=== PATIENT | male | born 1950 | race Caucasian/White ===

== ENCOUNTER 2022-06-02 16:26 | Inpatient (IN) | payer MEDICARE, SELFPAY ==
[2022-06-02 18:09] LABS: #Basophils 0.1 thou/uL (0.0-0.2); #Eosinphils 1.8 thou/uL (0.0-0.7); #Lymphocytes 2.9 thou/uL (1.20-3.40); #Monocytes 1.4 thou/uL (0.11-0.59); %Basophils 0.7 % (0.0-1.0); %Eosinophils 12.6 % (0.0-10.0); %Lymphocytes 20.6 % (21.0-51.0); %Monocytes 10.1 % (0.0-10.0); %Neutrophils 55.9 % (42.0-75.0); Hemoglobin 14.7 g/dL (14.0-18.0); Mean Corpuscular HGB CONC 31.8 g/dL (32.0-36.0); Mean Corpuscular Hemoglobin 29.3 pg (27.0-31.0); Mean Corpuscular Volume 91.9 fl (78.0-98.0); Mean Platelet Volume 7.4 fL (7.4-10.4); Platelet Count 481 10x3/uL (130-400); RBC Distribution Width 13.7 % (11.5-14.5); Red Blood Cell (RBC) Count 5.03 mill/uL (4.70-6.10); White Blood Cell (WBC) Count 14.2 10x3/uL (4.8-10.8)
[2022-06-02 18:43] LABS: ALT (SGPT) 36 U/L (8-55); AST (SGOT) 29 U/L (5-34); Albumin 3.7 g/dL (3.4-4.8); Alkaline Phosphatase 94 U/L (40-110); Anion Gap 14 mmol/L (10-20); BUN (Urea Nitrogen) 30 mg/dL (8.4-25.7); Bilirubin, Total 0.2 mg/dL (0.2-1.2); Calc. Creatinine Clearance 0 mL/min (70-130); Calcium 9.5 mg/dL (7.8-10.44); Carbon Dioxide 23 mmol/L (23-31); Chloride 106 mmol/L (98-107); Estimated GFR 34; Globulin 3.4 g/dL (2.4-3.5); Glucose 356 mg/dL (80-115); Potassium 5.1 mmol/L (3.5-5.1); Protein, Total 7.1 g/dL (5.8-8.1); Sodium 138 mmol/L (136-145)
[2022-06-02] MEDS ORDERED: VANCOMYCIN 2 GRAM/500 ML BAG 2 GM in Premix Bag 1 BAG IVPB SCH (23:45)
[2022-06-03] MEDS ORDERED: Ondansetron ODT 4 MG TAB PO PRN (00:43)
[2022-06-03] MEDS ORDERED: Senokot S 8.6-50 MG TAB PO PRN ×2 (00:43→07:30)
[2022-06-03] MEDS ORDERED: HumaLOG 300 UNITS/3 ML VIAL SC PRN (00:43)
[2022-06-03] MEDS ORDERED: Dextrose 50% Abboject 50 ML SYRINGE SLOW IVP PRN ×2 (00:43→16:25)
[2022-06-03] MEDS ORDERED: Dextrose 5% in Water 1,000 ML IV PRN ×2 (00:43→16:25)
[2022-06-03] MEDS ORDERED: Dexamethasone 4 mg/ml Vial ONE (01:38)
[2022-06-03] MEDS ORDERED: Cefepime 2 GM VIAL ONE (01:38)
[2022-06-03] MEDS ORDERED: diphenhydrAMINE 50 MG/ML VIAL ONE (01:38)
[2022-06-03 01:48] LABS: Hemoglobin A1c 7.3 % (4.0-6.0)
[2022-06-03 06:49] VITALS: BMI 33.0
[2022-06-03] MEDS: Amlodipine 5 MG TAB PO SCH (08:31)
[2022-06-03] MEDS: Carvedilol 25 MG TAB PO SCH ×2 (08:32→20:12)
[2022-06-03] MEDS: Heparin 5,000 UNITS/ML VIAL SC SCH ×3 (08:33→20:10)
[2022-06-03] MEDS: Furosemide 40 MG TAB PO SCH (08:33)
[2022-06-03] MEDS: Famotidine 20 MG TAB PO SCH (08:33)
[2022-06-03] MEDS: Losartan 25 MG TAB PO SCH (08:35)
[2022-06-03 09:19] LABS: Hemoglobin 14.7 g/dL (14.0-18.0); Mean Corpuscular HGB CONC 30.3 g/dL (32.0-36.0); Mean Corpuscular Hemoglobin 28.3 pg (27.0-31.0); Mean Corpuscular Volume 93.4 fl (78.0-98.0); Mean Platelet Volume 7.5 fL (7.4-10.4); Platelet Count 515 10x3/uL (130-400); RBC Distribution Width 13.7 % (11.5-14.5); Red Blood Cell (RBC) Count 5.17 mill/uL (4.70-6.10); White Blood Cell (WBC) Count 20.6 10x3/uL (4.8-10.8)
[2022-06-03 09:35] LABS: Anion Gap 15 mmol/L (10-20); BUN (Urea Nitrogen) 27 mg/dL (8.4-25.7); Calc. Creatinine Clearance 60 mL/min (70-130); Calcium 9.3 mg/dL (7.8-10.44); Carbon Dioxide 23 mmol/L (23-31); Chloride 106 mmol/L (98-107); Estimated GFR 42; Glucose 340 mg/dL (80-115); Potassium 4.5 mmol/L (3.5-5.1); Sodium 139 mmol/L (136-145)
[2022-06-03 09:39] LABS: Band 22 % (5-11); Eosinophils 1 % (0-10); Lymphocytes 5 % (21-51); MDiff Complete? YES; Monocytes 4 % (0-10); Neutrophil 68 % (42-75); Platelet Morphology Comment Appears Increased; Polychromasia SLIGHT = 2-3 cells (100X) (0-2/hpf)
[2022-06-03] MEDS ORDERED: traMADol HCl 50 MG TAB PO SCH (11:15)
[2022-06-03 12:52] LABS: Glucose 465 mg/dL (80-115)
[2022-06-03] MEDS ORDERED: Polyethylene Glycol OPTH DROP 15 ML BOT EA EYE PRN (12:56)
[2022-06-03] MEDS ORDERED: Non-Formulary Item 1 EACH (Insulin Detemir [Levemir] 100 UNIT/ML Vial) SC SCH (13:00)
[2022-06-03] MEDS ORDERED: Ketorolac Tromethamine 30 MG/ML VIAL IVP PRN (13:38)
[2022-06-03] MEDS ORDERED: Ketorolac Tromethamine 30 MG/ML VIAL IVP SCH (13:45)
[2022-06-03] MEDS ORDERED: Insulin Glargine 30 UNITS/0.3 ML VIAL SC SCH ×2 (14:00→21:00)
[2022-06-03] MEDS ORDERED: predniSONE 20 MG TAB PO SCH (16:30)
[2022-06-03] MEDS: Cefepime 1 GM in Sodium Chloride 0.9% 100 ML IVPB SCH (18:15)
[2022-06-03] MEDS: HumaLOG 300 UNITS/3 ML VIAL SC PRN ×2 (18:16→20:12)
[2022-06-03] MEDS: Magnesium Oxide 250 MG TAB PO SCH (20:10)
[2022-06-03] MEDS: Atorvastatin Calcium 40 MG TAB PO SCH (20:12)
[2022-06-04] MEDS: Vancomycin 1.5 GRAM/300 ML BAG 1.5 GM in Premix Bag 1 BAG IVPB SCH (02:47)
[2022-06-04] MEDS: Cefepime 1 GM in Sodium Chloride 0.9% 100 ML IVPB SCH ×2 (06:29→16:56)
[2022-06-04 06:32] LABS: Anion Gap 14 mmol/L (10-20); BUN (Urea Nitrogen) 37 mg/dL (8.4-25.7); Calc. Creatinine Clearance 65 mL/min (70-130); Calcium 8.9 mg/dL (7.8-10.44); Carbon Dioxide 22 mmol/L (23-31); Chloride 106 mmol/L (98-107); Estimated GFR 45; Glucose 244 mg/dL (80-115); Potassium 4.6 mmol/L (3.5-5.1); Sodium 137 mmol/L (136-145)
[2022-06-04 06:37] LABS: Glucose 238 mg/dL (80-115)
[2022-06-04] MEDS: HumaLOG 300 UNITS/3 ML VIAL SC PRN ×4 (06:41→21:27)
[2022-06-04 06:45] LABS: Band 24 % (5-11); Hemoglobin 13.4 g/dL (14.0-18.0); Hypochromia SLIGHT = 6-15 cells (100X) (0-5/hpf); Lymphocytes 3 % (21-51); MDiff Complete? YES; Mean Corpuscular HGB CONC 31.4 g/dL (32.0-36.0); Mean Corpuscular Hemoglobin 29.1 pg (27.0-31.0); Mean Corpuscular Volume 92.6 fl (78.0-98.0); Mean Platelet Volume 7.6 fL (7.4-10.4); Monocytes 2 % (0-10); Neutrophil 70 % (42-75); Platelet Count 433 10x3/uL (130-400); Platelet Morphology Comment Appears Adequate; RBC Distribution Width 13.7 % (11.5-14.5); Reactive Lymphocytes 1 % (0-10); White Blood Cell (WBC) Count 19.8 10x3/uL (4.8-10.8)
[2022-06-04] MEDS: Magnesium Oxide 250 MG TAB PO SCH ×2 (09:03→21:19)
[2022-06-04] MEDS: Losartan 25 MG TAB PO SCH (09:03)
[2022-06-04] MEDS: Famotidine 20 MG TAB PO SCH (09:03)
[2022-06-04] MEDS: Carvedilol 25 MG TAB PO SCH ×2 (09:03→21:19)
[2022-06-04] MEDS: Amlodipine 5 MG TAB PO SCH (09:03)
[2022-06-04] MEDS: Multivitamin W/ Minerals 1 TAB PO SCH (09:03)
[2022-06-04] MEDS: Heparin 5,000 UNITS/ML VIAL SC SCH ×3 (09:04→21:21)
[2022-06-04] MEDS: predniSONE 20 MG TAB PO SCH (09:04)
[2022-06-04] MEDS: Furosemide 40 MG TAB PO SCH (09:04)
[2022-06-04] MEDS: Insulin Glargine 30 UNITS/0.3 ML VIAL SC SCH ×2 (09:05→21:20)
[2022-06-04] MEDS: traMADol HCl 50 MG TAB PO PRN (09:08)
[2022-06-04] MEDS ORDERED: Magnevist 469MG/ML 20 ML VIAL ONE (12:05)
[2022-06-04 12:06] LABS: Glucose 255 mg/dL (80-115)
[2022-06-04 18:04] LABS: Glucose 229 mg/dL (80-115)
[2022-06-04] MEDS: Atorvastatin Calcium 40 MG TAB PO SCH (21:19)
[2022-06-04] MEDS: metroNIDAZOLE 500 MG in Premix Bag 1 BAG IVPB SCH (21:21)
[2022-06-05 02:58] LABS: #Basophils 0.2 thou/uL (0.0-0.2); #Eosinphils 0.6 thou/uL (0.0-0.7); #Lymphocytes 3.5 thou/uL (1.20-3.40); #Monocytes 1.7 thou/uL (0.11-0.59); #Neutrophils 13.8 thou/uL (1.40-6.50); %Basophils 0.8 % (0.0-1.0); %Eosinophils 2.9 % (0.0-10.0); %Lymphocytes 17.6 % (21.0-51.0); %Monocytes 8.6 % (0.0-10.0); %Neutrophils 70.1 % (42.0-75.0); Hemoglobin 12.8 g/dL (14.0-18.0); Mean Corpuscular HGB CONC 31.6 g/dL (32.0-36.0); Mean Corpuscular Hemoglobin 29.6 pg (27.0-31.0); Mean Corpuscular Volume 93.7 fl (78.0-98.0); Mean Platelet Volume 7.8 fL (7.4-10.4); Platelet Count 390 10x3/uL (130-400); RBC Distribution Width 13.6 % (11.5-14.5); Red Blood Cell (RBC) Count 4.33 mill/uL (4.70-6.10); White Blood Cell (WBC) Count 19.7 10x3/uL (4.8-10.8)
[2022-06-05 03:02] LABS: Vancomycin, Trough 10.8 ug/mL
[2022-06-05 03:07] LABS: Anion Gap 11 mmol/L (10-20); BUN (Urea Nitrogen) 39 mg/dL (8.4-25.7); Calc. Creatinine Clearance 83 mL/min (70-130); Calcium 8.8 mg/dL (7.8-10.44); Carbon Dioxide 25 mmol/L (23-31); Chloride 107 mmol/L (98-107); Estimated GFR 61; Glucose 181 mg/dL (80-115); Potassium 4.2 mmol/L (3.5-5.1); Sodium 139 mmol/L (136-145)
[2022-06-05] MEDS: Vancomycin 1.5 GRAM/300 ML BAG 1.5 GM in Premix Bag 1 BAG IVPB SCH (03:31)
[2022-06-05] MEDS: traMADol HCl 50 MG TAB PO PRN ×2 (03:32→13:40)
[2022-06-05] MEDS: Cefepime 1 GM in Sodium Chloride 0.9% 100 ML IVPB SCH ×2 (05:48→19:28)
[2022-06-05] MEDS: metroNIDAZOLE 500 MG in Premix Bag 1 BAG IVPB SCH (06:51)
[2022-06-05] MEDS: Losartan 25 MG TAB PO SCH (08:52)
[2022-06-05] MEDS: Magnesium Oxide 250 MG TAB PO SCH ×2 (08:52→20:15)
[2022-06-05] MEDS: Famotidine 20 MG TAB PO SCH ×2 (08:52→20:15)
[2022-06-05] MEDS: Furosemide 40 MG TAB PO SCH (08:52)
[2022-06-05] MEDS: Multivitamin W/ Minerals 1 TAB PO SCH (08:52)
[2022-06-05] MEDS: Amlodipine 5 MG TAB PO SCH (08:53)
[2022-06-05] MEDS: Empagliflozin 10 MG TAB PO SCH (08:53)
[2022-06-05] MEDS: Carvedilol 25 MG TAB PO SCH ×2 (08:53→20:15)
[2022-06-05] MEDS: Heparin 5,000 UNITS/ML VIAL SC SCH ×3 (08:54→20:15)
[2022-06-05] MEDS: Insulin Glargine 30 UNITS/0.3 ML VIAL SC SCH ×2 (08:55→21:53)
[2022-06-05] MEDS: Clindamycin/D5W 600 MG in Premix Bag 1 BAG IVPB SCH ×2 (13:29→21:55)
[2022-06-05] MEDS: predniSONE 20 MG TAB PO SCH (14:46)
[2022-06-05] MEDS: Atorvastatin Calcium 40 MG TAB PO SCH (20:15)
[2022-06-06] MEDS: diphenhydrAMINE 25 MG CAP PO PRN ×2 (03:37→08:57)
[2022-06-06] MEDS: Vancomycin 1.5 GRAM/300 ML BAG 1.5 GM in Premix Bag 1 BAG IVPB SCH (03:37)
[2022-06-06 05:01] LABS: #Basophils 0.2 thou/uL (0.0-0.2); #Eosinphils 4.1 thou/uL (0.0-0.7); #Lymphocytes 4.9 thou/uL (1.20-3.40); %Basophils 1.2 % (0.0-1.0); %Eosinophils 22.4 % (0.0-10.0); %Lymphocytes 26.8 % (21.0-51.0); %Neutrophils 38.6 % (42.0-75.0); Hemoglobin 13.5 g/dL (14.0-18.0); Mean Corpuscular HGB CONC 31.6 g/dL (32.0-36.0); Mean Corpuscular Hemoglobin 29.2 pg (27.0-31.0); Mean Corpuscular Volume 92.4 fl (78.0-98.0); Mean Platelet Volume 7.5 fL (7.4-10.4); Platelet Count 442 10x3/uL (130-400); RBC Distribution Width 13.5 % (11.5-14.5); Red Blood Cell (RBC) Count 4.63 mill/uL (4.70-6.10); White Blood Cell (WBC) Count 18.1 10x3/uL (4.8-10.8)
[2022-06-06 05:23] LABS: Anion Gap 14 mmol/L (10-20); BUN (Urea Nitrogen) 35 mg/dL (8.4-25.7); Calc. Creatinine Clearance 89 mL/min (70-130); Carbon Dioxide 28 mmol/L (23-31); Chloride 106 mmol/L (98-107); Estimated GFR 66; Glucose 86 mg/dL (80-115); Potassium 4.1 mmol/L (3.5-5.1); Sodium 144 mmol/L (136-145)
[2022-06-06] MEDS: Cefepime 1 GM in Sodium Chloride 0.9% 100 ML IVPB SCH (07:07)
[2022-06-06] MEDS: Clindamycin/D5W 600 MG in Premix Bag 1 BAG IVPB SCH ×2 (07:07→13:04)
[2022-06-06] MEDS: Amlodipine 5 MG TAB PO SCH (08:42)
[2022-06-06] MEDS: Furosemide 40 MG TAB PO SCH (08:42)
[2022-06-06] MEDS: Empagliflozin 10 MG TAB PO SCH (08:42)
[2022-06-06] MEDS: Heparin 5,000 UNITS/ML VIAL SC SCH ×2 (08:42→13:59)
[2022-06-06] MEDS: Multivitamin W/ Minerals 1 TAB PO SCH (08:42)
[2022-06-06] MEDS: Famotidine 20 MG TAB PO SCH (08:42)
[2022-06-06] MEDS: Carvedilol 25 MG TAB PO SCH (08:42)
[2022-06-06] MEDS: Magnesium Oxide 250 MG TAB PO SCH (08:42)
[2022-06-06] MEDS: Losartan 25 MG TAB PO SCH (08:43)
[2022-06-06] MEDS: Insulin Glargine 30 UNITS/0.3 ML VIAL SC SCH (08:54)
[2022-06-06 13:12] VITALS: BP 127/67; TEMP 97.9
[2022-06-06] MEDS: traMADol HCl 50 MG TAB PO PRN (14:37)
== END 2022-06-06 16:50 | disposition home or self-care (01) | DRG 603 ==
LOC: ERS 16:26 → ERHOLD 06-03 00:14 → MSONC 06-03 06:31
PROVIDERS: ADMIT Student in an Organized Health Care Education/Training Program; ATTEND Internal Medicine
DX: L03.116 Cellulitis of left lower limb (principal); N17.9 Acute kidney failure, unspecified; I10 Essential (primary) hypertension; E11.9 Type 2 diabetes mellitus without complications; L24.7 Irritant contact dermatitis due to plants, except food; Z88.1 Allergy status to other antibiotic agents; Z79.899 Other long term (current) drug therapy; Z79.84 Long term (current) use of oral hypoglycemic drugs; Z79.4 Long term (current) use of insulin
CPT/HCPCS: 36415; 36416; 80048; 80053; 80202; 82947; 83036; 83605; 85025; 87040; 96365; 96367; 96375; A9579; J0692; J1100; J1200; J1644; J1815; J1885; J3370; J3490; J7512